=== PATIENT | female | born 1965 ===

== ENCOUNTER → 2017-04-19 | Outpatient (CLI) | payer OTHER ==
[2017-04-19 14:56] LABS: BASO % 1.2 %; BASO ABS # 0.08 K/uL (0-0.2); COMPLETE YES; EOS % 4.8 %; HEMATOCRIT 42.4 % (37-47); IG% 0.2 %; LYMPH % 32.2 %; LYMPH ABS # 2.07 K/uL (1.2-3.4); MEAN CELL VOLUME 92.4 fL (80-100); MEAN CORPUSCULAR HEMOGLOBIN 30.7 pg (25-34); MEAN CORPUSCULAR HGB CONC 33.3 g/dl (32-36); MEAN PLATELET VOLUME 11.3 fL (7.4-10.4); MONO % 11.4 %; NEUT % 50.2 %; PLATELET COUNT 286 K/uL (130-400); RED BLOOD COUNT 4.59 M/uL (4.2-5.4); WHITE BLOOD COUNT 6.42 K/uL (4.8-10.8)
[2017-04-19 15:19] LABS: ALT/SGPT 45 U/L (12-78); AST/SGOT 30 U/L (15-37); BLOOD UREA NITROGEN 12 mg/dl (7-18); CALCIUM 8.5 mg/dl (8.5-10.1); CARBON DIOXIDE 26 mmol/L (21-32); CHLORIDE 110 mmol/L (98-107); GLUCOSE 86 mg/dl (70-99); SODIUM 144 mmol/L (136-145)
[2017-04-19 15:28] LABS: ALB/GLOB RATIO 1.3 (0.9-2); ALKALINE PHOSPHATASE 77 U/L (45-117); CHOLESTEROL 124 mg/dl (0-200); CHOLESTEROL/HDL RATIO 3.4; HDL CHOLESTEROL 37 mg/dl; LDL CHOLESTEROL CALCULATED 67 mg/dl; THYROID STIMULATING HORMONE 0.742 uIu/ml (0.300-4.500); TRIGLYCERIDES 98 mg/dl (0-150); VERY LOW DENSITY LIPOPROT CALC 20 mg/dl
== END | disposition home or self-care (01) ==
LOC: C.LABSPEC 14:07
PROVIDERS: ATTEND Family Medicine
DX: E03.9 Hypothyroidism, unspecified (principal); E78.2 Mixed hyperlipidemia; R60.0 Localized edema

== ENCOUNTER → 2017-09-18 | Outpatient (CLI) | payer OTHER ==
[2017-09-18 19:07] LABS: BASO % 0.8 %; BASO ABS # 0.07 K/uL (0-0.2); COMPLETE YES; EOS % 3.5 %; IG% 0.1 %; LYMPH % 28.3 %; LYMPH ABS # 2.41 K/uL (1.2-3.4); MEAN CELL VOLUME 93.1 fL (80-100); MEAN CORPUSCULAR HEMOGLOBIN 30.2 pg (25-34); MEAN CORPUSCULAR HGB CONC 32.4 g/dl (32-36); MEAN PLATELET VOLUME 10.8 fL (7.4-10.4); MONO % 7.6 %; NEUT % 59.7 %; PLATELET COUNT 296 K/uL (130-400); RED BLOOD COUNT 4.51 M/uL (4.2-5.4); WHITE BLOOD COUNT 8.52 K/uL (4.8-10.8)
[2017-09-18 19:21] LABS: ALT/SGPT 34 U/L (12-78); AST/SGOT 20 U/L (15-37); BLOOD UREA NITROGEN 14 mg/dl (7-18); BUN/CREATININE RATIO 13.7 (10-20); CALCIUM 8.5 mg/dl (8.5-10.1); CARBON DIOXIDE 28 mmol/L (21-32); CHLORIDE 107 mmol/L (98-107); CREATININE 1.02 mg/dl (0.60-1.20); GLUCOSE 126 mg/dl (70-99); POTASSIUM 3.4 mmol/L (3.5-5.1); SODIUM 142 mmol/L (136-145)
[2017-09-18 19:24] LABS: ALB/GLOB RATIO 1.1 (0.9-2); ALKALINE PHOSPHATASE 81 U/L (45-117)
[2017-09-18 19:44] LABS: LYME DISEASE AB IGG NEG (NEG); LYME DISEASE AB IGM NEG (NEG)
== END | disposition home or self-care (01) ==
LOC: C.LABSPEC 17:54
PROVIDERS: ATTEND Family Medicine
DX: J02.9 Acute pharyngitis, unspecified (principal)

== ENCOUNTER → 2017-10-24 | Outpatient (CLI) | payer OTHER ==
[2017-10-24 18:43] LABS: BASO % 1.1 %; BASO ABS # 0.07 K/uL (0-0.2); EOS % 3.8 %; EOS ABS # 0.25 K/uL (0-0.5); HEMATOCRIT 42.5 % (37-47); HEMOGLOBIN 14.1 g/dL (12.0-16.0); IG# 0.02 K/uL (0.00-0.02); LYMPH % 30.7 %; LYMPH ABS # 2.04 K/uL (1.2-3.4); MEAN CORPUSCULAR HEMOGLOBIN 30.5 pg (25-34); MEAN CORPUSCULAR HGB CONC 33.2 g/dl (32-36); MEAN PLATELET VOLUME 10.8 fL (7.4-10.4); MONO % 12.3 %; MONO ABS # 0.82 K/uL (0.11-0.59); NEUT % 51.8 %; NEUT ABS # 3.44 K/uL (1.4-6.5); PLATELET COUNT 305 K/uL (130-400); RED CELL DISTRIBUTION WIDTH CV 13.1 % (11.5-14.5); RED CELL DISTRIBUTION WIDTH SD 43.7 fL (36.4-46.3); WHITE BLOOD COUNT 6.64 K/uL (4.8-10.8)
[2017-10-24 19:09] LABS: ALBUMIN 3.9 gm/dl (3.4-5.0); ALT/SGPT 31 U/L (12-78); BLOOD UREA NITROGEN 16 mg/dl (7-18); CALCIUM 8.8 mg/dl (8.5-10.1); CARBON DIOXIDE 27 mmol/L (21-32); CHOLESTEROL 111 mg/dl (0-200); CREATININE 1.06 mg/dl (0.60-1.20); GLUCOSE 103 mg/dl (70-99); LDL CHOLESTEROL CALCULATED 59 mg/dl; POTASSIUM 3.9 mmol/L (3.5-5.1); SODIUM 142 mmol/L (136-145); TOTAL PROTEIN 7.1 gm/dl (6.4-8.2)
[2017-10-24 19:15] LABS: ALKALINE PHOSPHATASE 79 U/L (45-117); AST/SGOT 19 U/L (15-37)
== END | disposition home or self-care (01) ==
LOC: C.LABSPEC 12:57
PROVIDERS: ATTEND Family Medicine
DX: E03.9 Hypothyroidism, unspecified (principal); E78.2 Mixed hyperlipidemia